=== PATIENT | male | born 1975 | race Two or more races ===

== ENCOUNTER 2018-11-10 00:01 | Inpatient (IN) | payer OTHER ==
[~2018-11-10] VITALS: Ht 180.3 cm; Wt 65.3 kg
[2018-11-10 04:30] VITALS: BP 129/76
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
[2018-11-10] MEDS ORDERED: MAG HYDROX/AL HYDROX/SIMETH 30 ML UDC PO PRN (05:30)
[2018-11-10] MEDS ORDERED: ONDANSETRON HCL/PF 4 MG/2 ML VIAL IVP PRN (05:30)
[2018-11-10] MEDS ORDERED: MAGNESIUM HYDROXIDE 30 ML UDC PO PRN (05:30)
[2018-11-10] MEDS ORDERED: Z GUARD REMEDY 2 OZ OINT TP PRN (05:30)
[2018-11-10] MEDS ORDERED: HYDROCODONE/APAP 5/325MG 1 EACH TABLET PO PRN (05:30)
[2018-11-10] MEDS ORDERED: ACETAMINOPHEN 325 MG TABLET PO PRN (05:30)
[2018-11-10] MEDS ORDERED: ZOLPIDEM TARTRATE 5 MG TABLET PO PRN (05:30)
[2018-11-10] MEDS: IV NS 0.9% 1,000 ML IV SCH ×3 (06:37→21:34)
--- NOTE | 2018-11-10 06:59 | NUR ---
BRANCH LENDING OFFICER NOTES ALL NEEDS ATTENDED AND MET, PATIENT RESTING COMFORTABLY AT THIS TIME, SAFETY MEASURES IN PLACE, WILL ENDORSE TO AM NURSE FOR CONTINUITY OF CARE.
[2018-11-10 07:00] LABS: APPEARANCE,URINE CLEAR (CLEAR); BILIRUBIN,URINE NEGATIVE (NEGATIVE); BLOOD, URINE 1+ Ery/uL (NEGATIVE); COLOR,URINE YELLOW (YELLOW); KETONES,URINE NEGATIVE (NEGATIVE); LEUKOCYTE ESTERASE ,URINE NEGATIVE (NEGATIVE); NITRITE, URINE NEGATIVE (NEGATIVE); PROTEIN,URINE NEGATIVE (NEGATIVE); UGLUCOSE NEGATIVE (NEGATIVE); UROBILINOGEN,URINE 0.2 EU/dL (0.2)
[2018-11-10] MEDS ORDERED: CEFTRIAXONE 1 G in IV D5W 50 ML IV SCH ×2 (07:00→19:00)
[2018-11-10 07:13] LABS: BACTERIA,URINE Rare /HPF (None Seen); SQUAMOUS EPITHELIAL CELL,UR Rare /HPF (None Seen); WBC,URINE 0-2 /HPF (0-3)
[2018-11-10 07:31] LABS: CALCIUM, SERUM 8.4 mg/dL (8.5-10.1); CREATININE 0.8 mg/dL (0.6-1.3); POTASSIUM 3.5 mmol/L (3.5-5.1)
[2018-11-10 07:32] LABS: MAGNESIUM 1.8 mg/dL (1.8-2.4); PHOSPHORUS 2.8 mg/dL (2.5-4.9)
[2018-11-10 07:35] LABS: BASOPHILS # (AUTO) 0.1 /CMM (0.0-0.2); BASOPHILS % (AUTO) 0.4 % (0.0-2.0); EOSINOPHILS % (AUTO) 0.1 % (0.0-6.0); HEMATOCRIT 41 % (39-51); LYMPHOCYTES # (AUTO) 1.6 /CMM (0.8-4.8); LYMPHOCYTES % (AUTO) 11.3 % (20.0-44.0); MEAN CORPUSCULAR HGB CONC 34 g/dl (31.0-36.0); MEAN CORPUSCULAR VOLUME 89 fL (80-96); NEUTROPHILS # (AUTO) 11.7 /CMM (1.8-8.9); NEUTROPHILS % (AUTO) 81.2 % (43.0-81.0); PLATELET COUNT (AUTO) 254 /CMM (150-450); RED BLOOD CELL COUNT(AUTO) 4.66 MIL/uL (4.5-6.0); WHITE BLOOD COUNT (AUTO) 14.4 K/uL (4.3-11.0)
[2018-11-10 08:00] VITALS: BP 115/70
--- NOTE | 2018-11-10 08:00 | NUR ---
rn notes received patient in the bed sleeping, patient has no acute respiratory distress, [id number], v/s stable. arouse when called name or touched. patient refused pain . Infusing ns at 125 ml/hr on right ac area intact, patient ambulatory using bathroom. call light within to reach, safety precaution maintained all the time.
--- NOTE | 2018-11-10 11:00 | NUR ---
rn notes seen patient by dr garcia, d/c tele to med/surge. patient resting hardik of the , continued monitoring.
--- NOTE | 2018-11-10 13:00 | NUR ---
rn notes restarted new iv line on left FA gauge 20. patient taken to smoke by supervision of tree driller.
--- NOTE | 2018-11-10 13:30 | NUR ---
rn notes CONTINUED INFUSING NS AT 125 ML/HR ON LEFT FA INTACT. PATIENT COOPERATIVE, REFUSED PAIN.
[2018-11-10 16:00] VITALS: BP 118/70
--- NOTE | 2018-11-10 18:30 | NUR ---
RN NOTES PATIENT EATING DINNER, INFUSING ROCEPHIN 100 ML/HR INTACT ON LEFT FA, REFUSED PAIN, V/S STABLE. ENDORSED ONCOMING NURSE FOLLOW PLAN OF CARE.
[2018-11-10 19:03] VITALS: BP 115/70
--- NOTE | 2018-11-10 19:23 | NUR ---
MS RN OPENING NOTES: RECEIVED PT ON ROOM AIR AND IS TOLERATING WELL. NO SOB NOTED. NO S/S OF DISTRESS. PT REQUESTING TO GO FOR A SMOKE. EDUCATED HIM THAT SMOKING IS PROHIBITED AND NOT GOOD FOR HIM. PT HAS SIGNED THE SMOKER FORM. PT HAS IV ON L FOREARM #20G AND IS BEING INFUSED WITH IV NS AT 125ML/HR. BED KEPT IN LOW, LOCKED POSITION, AND SIDE RAILS X 2UP. WILL CONTINUE TO MONITOR PT.
[2018-11-10 20:00] VITALS: BP 121/78
--- NOTE | 2018-11-10 20:06 | NUR ---
MS RN NOTES: PT WENT DOWN FOR SMOKE BREAK WITH NAYANA MALDONADO.
--- NOTE | 2018-11-10 20:24 | NUR ---
MS RN NOTES: PT BACK FROM SMOKE BREAK IN STABLE CONDITION.
[2018-11-11] MEDS: IV NS 0.9% 1,000 ML IV SCH (05:48)
--- NOTE | 2018-11-11 06:19 | NUR ---
MS RN CLOSING NOTES: ALL NEEDS WERE ATTENDED AND ANTICIPATED FOR. PT KEPT CLEAN, DRY, AND COMFORTABLE. PT ASLEEP AT THIS TIME AND RESTING COMFORTABLY. NO SOB NOTED. NO S/S OF DISTRESS. PT HAS IV ON L FOREARM #20G AND IS BEING INFUSED WITH IV NS AT 125ML/HR. PT ALSO HAS IV ON RAC #20G AND IS PATENT AND INTACT. CURRENTLY H/L. BED KEPT IN LOW, LOCKED POSITION, AND SIDE RAILS X1 UP. PT VERBALIZED THAT HE DOES NOT WANT OTHER SIDE RAIL UP AND HE UNDERSTANDS RISKS. WILL ENDORSE TO AM NURSE FOR PRERY.
[2018-11-11 08:00] VITALS: BP 116/69
--- NOTE | 2018-11-11 08:00 | NUR ---
RN NOTES RECEIVED PATIENT IN THE ROOM A/O X4, PATIENT STABLE, REFUSED PAIN AND WEAKNESS, PER PATIENT VERBALIZED FEELING BETTER TODAY. INFUSING NS AT LEFT FA 125 ML/HR INTACT, PATIENT EATING BREAKFAST, V/S STABLE. PATIENT AMBULATORY SELF CARE. CALL LIGHT WITHIN TO REACH, CONTINUED MONITORING. PATIENT FOCUSED AT THIS TIME GO OUT FOR SMOKING.
[2018-11-11] MEDS ORDERED: IV NS 0.9% 1,000 ML IV PRN (09:00)
--- NOTE | 2018-11-11 10:00 | NUR ---
RN NOTES PER HOSPITALIST ORDER [facility]
--- NOTE | 2018-11-11 10:32 | NUR ---
Social service consult requested by Dr. Lr for homelessness. Pt. is a 43 year old male who was admitted to [facility] for UTI and sepsis. SW met with pt. bedside. Pt. is alert and oriented x 4. Pt. is cooperative and cordial with SW during the assessment. Pt. states he is currently living at his dad's place in [place], located at [address] [facility] [facility] [address] until his he receives his permanent housing. Pt's emergency contact is his father Wilman . Pt. will be going back to [place] upon discharge. Pt. currently receives GR and Food stamps. Pt. drinks alcohol and uses methamphetamines occasionally. Pt. last used methamphetamines three to four days ago. Pt. attend drug treatment program 4 years ago at [facility]. Pt. denies any suicidal and homicidal ideations. Pt. does not have any psychiatric diagnosis. [facility] offered pt. referrals to treatment programs, however pt. declined. Pt. will require a TAP card upon discharge. [facility] updated spring encaser Catie regarding pt's discharge plan.
[2018-11-11 10:37] LABS: BASOPHILS % (AUTO) 0.5 % (0.0-2.0); EOSINOPHILS % (AUTO) 1.6 % (0.0-6.0); HEMATOCRIT 43 % (39-51); HEMOGLOBIN 14.4 g/dL (13.5-17.5); LYMPHOCYTES # (AUTO) 1.4 /CMM (0.8-4.8); LYMPHOCYTES % (AUTO) 18.7 % (20.0-44.0); MEAN CORPUSCULAR HGB CONC 34 g/dl (31.0-36.0); MEAN CORPUSCULAR VOLUME 90 fL (80-96); NEUTROPHILS # (AUTO) 4.8 /CMM (1.8-8.9); NEUTROPHILS % (AUTO) 65.2 % (43.0-81.0); PLATELET COUNT (AUTO) 242 /CMM (150-450); RED BLOOD CELL COUNT(AUTO) 4.74 MIL/uL (4.5-6.0); WHITE BLOOD COUNT (AUTO) 7.4 K/uL (4.3-11.0)
[2018-11-11 16:00] VITALS: BP 125/82
--- NOTE | 2018-11-11 16:30 | NUR ---
RN NOTES RECEIVED UA RESULT FROM [facility] UA CULTURE NORMAL SKIN JOSE RAMON, ASYMPTOMATIC BACTERIURIA IS NOT AN INDICATION FOR ANTIMICROBIAL TREATMENT.
--- NOTE | 2018-11-11 17:25 | NUR ---
OIL SCOUT NOTES PATIENT DISCHARGE AT THIS TIME GOING HOME SELF CARE. PATIENT A/O X4, STABLE , V/S WNL. REFUSED PAIN, AMBULATORY SELF CARE. MD RECONCILIATION AND DISCHARGE ORDER REVIEWED AND EXPLAINED TO PATIENT. PATIENT VERBALIZED UNDERSTANDING. PATIENT WILL FOLLOW PRIMARY SUPERVISOR CAPACITOR PROCESSING. PATIENT SIGN PAPERWORK, BELONGING WITH THE PATIENT, ALSO GIVEN BUS TOKEN. ESCORTED PATENT TO THE LOBBY FOR SAFETY.
== END 2018-11-11 17:15 | disposition home or self-care (01) | DRG 720 ==
LOC: TELE 04:22 → MED 08:37
PROVIDERS: ADMIT Internal Medicine; ATTEND Student in an Organized Health Care Education/Training Program
DX: A41.9 Sepsis, unspecified organism (principal); E86.0 Dehydration; N39.0 Urinary tract infection, site not specified; F19.11 Other psychoactive substance abuse, in remission
CPT/HCPCS: 36415; 80048-TC; 80061-TC; 81000-TC; 83605-TC; 83735-TC; 84100-TC; 85025-TC; 87081-TC; G0378; J0696; J7030; J7060

== ENCOUNTER 2021-07-04 | Inpatient (IN) | payer OTHER ==
[~2021-07-04] VITALS: Ht 175.3 cm; Wt 70.3 kg
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
--- NOTE | 2021-07-04 00:45 | NUR ---
IV LINE ESTABLISHED, LAC 18G. BLOOD COLLECTED AND SENT TO LAB
[2021-07-04] MEDS ORDERED: CLINDAMYCIN PHOSPHATE IV 600 MG/4 ML VIAL ONE (00:51)
[2021-07-04] MEDS ORDERED: KETOROLAC TROMETHAMINE 15 MG/ML VIAL ONE (00:51)
[2021-07-04] MEDS ORDERED: IV NS 0.9% 1,000 ML IV ONE (01:00)
[2021-07-04] MEDS ORDERED: KETOROLAC TROMETHAMINE INJ 30 MG/ML VIAL IV ONE (01:00)
[2021-07-04] MEDS ORDERED: CLINDAMYCIN 600 MG in IV D5W 100 ML IV ONE (01:00)
[2021-07-04 01:10] LABS: BASOPHILS % (AUTO) 0.1 % (0.0-2.0); EOSINOPHILS % (AUTO) 0.1 % (0.0-6.0); HEMATOCRIT 37 % (39-51); HEMOGLOBIN 12.1 g/dL (13.5-17.5); LYMPHOCYTES # (AUTO) 2.3 K/uL (0.8-4.8); LYMPHOCYTES % (AUTO) 8.1 % (20.0-44.0); MEAN CORPUSCULAR HGB CONC 33 g/dl (31.0-36.0); MEAN CORPUSCULAR VOLUME 86 fL (80-96); MONOCYTES # (AUTO) 1.6 K/uL (0.1-1.30); MONOCYTES % (AUTO) 5.6 % (2.0-12.0); NEUTROPHILS # (AUTO) 23.9 K/uL (1.8-8.9); NEUTROPHILS % (AUTO) 86.1 % (43.0-81.0); PLATELET COUNT (AUTO) 492 K/uL (150-450); RED BLOOD CELL COUNT(AUTO) 4.25 MIL/uL (4.5-6.0); WHITE BLOOD COUNT (AUTO) 27.7 K/uL (4.3-11.0)
[2021-07-04 01:25] LABS: CALCIUM, SERUM 8.9 mg/dL (8.5-10.1); CREATININE 1.1 mg/dL (0.6-1.3); POTASSIUM 3.9 mmol/L (3.5-5.1)
--- NOTE | 2021-07-04 01:54 | NUR ---
COVID ANTIGEN SWAB COLLECTED
[2021-07-04] MEDS ORDERED: ACETAMINOPHEN 325 MG TABLET PO PRN (03:30)
[2021-07-04] MEDS ORDERED: hydrALAZINE HCL IV 20 MG VIAL IV PRN (03:30)
[2021-07-04] MEDS ORDERED: IV NS 0.9% 1,000 ML IV SCH (03:30)
[2021-07-04] MEDS ORDERED: ONDANSETRON HCL/PF 4 MG/2 ML VIAL IVP PRN (03:30)
--- NOTE | 2021-07-04 04:10 | NUR ---
MRSA SWAB COLLECTED AND SENT TO LAB. PATIENT'S BELONGINGS LIST DONE.
[2021-07-04] MEDS ORDERED: VANCOMYCIN HCL 1.25 GM in IV D5W 260 ML IV SCH (08:00)
--- NOTE | 2021-07-04 08:32 | NUR ---
BED ASSIGNED 321-2
[2021-07-04] MEDS: HEPARIN SODIUM, PORCINE 5000 UNITS/1 ML VIAL SQ SCH ×3 (09:00→20:45)
--- NOTE | 2021-07-04 09:31 | NUR ---
REPORT GIVEN HUGO RUIZ FOR PERRY
--- NOTE | 2021-07-04 10:02 | NUR ---
JOSEPH MS NOTES PT IN BED, AWAKE, ALERT AND ORIENTED, NO COMPLAINT OF PAIN OR ANY DISCOMFORT, RESPIRATIONS REGULAR, ON O2 AT 2LPM VIA N/C, DISCHARGE ORDER GIVEN BY DR. WARD, DISCHARGE AND MEDICATION INSTRUCTIONS PROVIDED TO PT AND CAREGIVER, VERBALIZED UNDERSTANDING, BELONGINGS ACCOUNTED FOR, ASSISTED BY CAREGIVER TO WHEELCHAIR, LEFT IN STABLE CONDITION. Addendum: 07/04/21 at 1037 by JORGITO RAMOS RN PLS DISREGARD ABOVE NOTE, THIS IS FOR ANOTHER PATIENT.
--- NOTE | 2021-07-04 10:10 | NUR ---
RN MS NOTES RECEIVED PT FROM E.R. STAFF VIA [facility], ASSISTED TO BED, MADE COMFORTABLE, PT IS AWAKE, ALERT AND ORIENTED, NOT IN DISTRESS, ABLE TO AMBULATE TO THE BATHROOM WITH STEADY GAIT, NOTED WITH WOUND AT RIGHT LOWER LEG, KEPT CLEAN AND DRY, DRESSING APPLIED, ADMITTING ORDERS RECEIVED FROM MD, NOTED AND CARRIED OUT, VITALS TAKEN AND RECORDED.
[2021-07-04 12:00] VITALS: BP 128/49
[2021-07-04] MEDS: CEFEPIME 2 GM in IV D5W 100 ML IV SCH ×2 (12:21→20:40)
[2021-07-04] MEDS: MORPHINE SULFATE INJ 2 MG/ML DISP.SYRIN IV PRN ×2 (15:07→20:08)
[2021-07-04 16:00] VITALS: BP 110/64
[2021-07-04] MEDS: VANCOMYCIN 0.75 GM in IV D5W 250 ML IV SCH (18:10)
--- NOTE | 2021-07-04 18:15 | NUR ---
RN MS NOTES PT IN BED, AWAKE, ALERT AND ORIENTED, WATCHING TV, NO COMPLAINT OF PAIN AT THIS TIME, RESPIRATIONS NORMAL, DRESSING TO RIGHT KNEE INTACT, NO DRAIN NOTED, IV ATB GIVEN ORDERED, ATE DINNER WITH GOOD APPETITE, CALL LIGHT WITHIN REACH, ALL NEEDS ATTENDED.
--- NOTE | 2021-07-04 19:15 | NUR ---
RN opening notes Received Pt from morning nurse. Pt is sitting in the bed comfortably watching TV. Pt is alert and orientedX4. On room air. No SOB. No S/s of distress noted. IV sites at LAC# 18 is clean, intact and infuising well vanco abx. Snack is given. Safety precautions is maintained. Bed at low position, brakes locked, side rails upX2, hob elevated, urinal at the bedside and call light is within reach. Will continue to monitor.
[2021-07-04 20:00] VITALS: BP 115/64
--- NOTE | 2021-07-04 20:08 | NUR ---
RN notes Pt is complaining of pain on R and L knee 10/10 on pain scale. Administered morphine 2 mg/iv push/prn as ordered. VS is stable. safety precautions is maintained. Will continue to monitor.
--- NOTE | 2021-07-04 20:46 | NUR ---
RN notes Pt refused heparin inj. Explained and risks and benefits. Pt keep refusing. Pt stated "No" I don't want that." Will continue to monitor.
--- NOTE | 2021-07-04 23:28 | NUR ---
RN notes Pt refuses IV fluids. Pt stated "I pee a lot." Explained risks and benefits. Pt keep refusing. Pt also states " I drink a lot too." Will continue to monitor.
[2021-07-05] MEDS: MORPHINE SULFATE INJ 2 MG/ML DISP.SYRIN IV PRN ×2 (00:28→05:21)
[2021-07-05] MEDS: VANCOMYCIN 0.75 GM in IV D5W 250 ML IV SCH (02:11)
--- NOTE | 2021-07-05 02:58 | NUR ---
RN notes Pt keep refusing abx vanco. explained risks and benefits. Offered several times. Pt keep refusing. Pt stated "I keep peeing and peeing!!" Pt agitated easily and non compliant. Pt removed wound dressing and keep refusing for wound care dressing change. Charge nurse is aware and informed.
--- NOTE | 2021-07-05 05:30 | NUR ---
RN notes wound care provided.
--- NOTE | 2021-07-05 06:20 | NUR ---
RN notes Pt refused am labs. Explained risks and benefits. Informed to Phelebotomist to come again.
--- NOTE | 2021-07-05 06:40 | NUR ---
RN closing notes Pt is resting in bed comfortably. Pt is alert and orientedX4. On room air. No SOB. No S/s of distress noted. IV sites at LAC# 18 is clean, intact and SL. Pt still refusing IV fluids. Wound care provided. Kept Pt clean, dry and comfortable. Safety precautions is maintained. Bed at low position, brakes locked, side rails upX2, hob elevated, urinal at the bedside and call light is within reach. Will endorse to am nurse for PERRY.
--- NOTE | 2021-07-05 06:55 | NUR ---
RN notes Pt is requesting to smoke outside. Pt signed the consent for smoking. Pt went to smoke outside accompanied by ERICA Norris. Charge nurse is aware and informed.
--- NOTE | 2021-07-05 07:30 | NUR ---
RN MS NOTES PT AWAKE, ALERT AND ORIENTED, WALKING ALONG THE HALLWAY WITH STEADY GAIT WITH DRESSING TO RIGHT LOWER LEG PARTLY DANGLING, OFFERED TO REINFORCE THE DRESSING BUT PT REFUSED, SAYING HE IS OK AND HE WANTS TO SMOKE, AND REQUESTING FOR PAIN MEDICINE, CLOTH SPREADER NURSE GAVE HIM PAIN MED AND IT IS NOT DUE YET, NOT IN DISTRESS.
--- NOTE | 2021-07-05 08:30 | NUR ---
RN MS NOTES PT STATED THAT HE WANTS TO SMOKE, REMINDED PT THAT HE HAS TO HAVE SOMEBODY WITH HIM AT THE SMOKING AREA, PT SAID HE DOESN'T CARE AND WENT STRAIGHT TO THE ELEVATOR RIGHT AWAY, ACCOMPANIED PT TO SMOKE AT THE SMOKING AREA AND WENT BACK TO HIS ROOM AFTER 5 MIN.
--- NOTE | 2021-07-05 08:50 | NUR ---
RN MS NOTES CHARGE NURSE, NURSING FLOOR WORKER TRANSFER BAY AND DR. MASON INFORMED THAT PT LEFT AMA.
--- NOTE | 2021-07-05 08:50 | NUR ---
RN MS NOTES PT REFUSING ALL AM MEDS AND LAB DRAWS, EXPLAINED RISKS AND BENEFITS, PLAN OF CARE, BUT STILL REFUSED EVERYTHING, ASKING FOR PAIN MEDICATION AND DEMANDING TO SPEAK WITH THE DOCTOR, WHILE STILL REFUSING FOR DRESSING TO BE APPLIED AT THE RIGHT LOWER LEG, PT STARTED TO COLLECT HIS BELONGINGS AND SAID THAT HE IS LEAVING AND GOING TO ANOTHER HOSPITAL, EXPLAINED THE RISKS OF LEAVING AMA, INCLUDING WORSENING OF HIS LEG WOUND AND OTHER POSSIBLE COMPLICATIONS AND CONVINCED PT TO STAY TO CONTINUE TREATMENT BUT SAID HE IS DECIDED ON LEAVING, PT SIGNED AMA FORM AND AGREED TO HAVE HIS WOUND DRESSED, NEW CLEAN DRESSING APPLIED TO RIGHT LOWER LEG WOUND, EXPLAINED TO PT THAT HE SHOULD GO TO AN EMERGENCY ROOM FOR CONTINUITY OF HIS TREATMENT AND TO FOLLOW UP WITH HIS PRIMARY CARE DOCTOR, PT VERBALIZED UNDERSTANDING, REFUSED TO SIGN HIS BELONGINGS FORM AND STATED THAT HE WOULD LIKE TO LEAVE IMMEDIATELY, ACCOMPANIED PT TO HOSPITAL LOBBY, LEFT IN STABLE CONDITION WITH HIS BELONGINGS.
--- NOTE | 2021-07-05 09:21 | NUR ---
WOUND CARE CONSULT: ATTEMPTED TO SEE PT FOR SKIN ASSESSMENT AT 0820 BUT PT REFUSED TO HAVE DRESSING REMOVED. EXPLAINED IMPORTANCE OF WOUND CARE BUT PT REFUSED. DPM CONSULT CALLED TO DR ANDRES BUT PT WENT HOME AGAINST MEDICAL ADVICE SHORTLY AFTERWARD.
== END 2021-07-05 09:00 | disposition left against medical advice (07) | DRG 383 ==
LOC: ER 00:05 → TRANSITION 05:42 → MED 09:08
PROVIDERS: ADMIT Internal Medicine; ATTEND Internal Medicine
DX: L03.115 Cellulitis of right lower limb (principal); S81.001A Unspecified open wound, right knee, initial encounter; D72.829 Elevated white blood cell count, unspecified; Z20.822 Contact with and (suspected) exposure to COVID-19; V19.3XXA Pedal cyclist (driver) (passenger) injured in unspecified nontraffic accident, initial encounter; Y92.89 Other specified places as the place of occurrence of the external cause; Y93.55 Activity, bike riding
CPT/HCPCS: 36415; 73590-TC; 80048-TC; 83605-TC; 85025-TC; 85652-TC; 86140-TC; 87040-TC; 87081-TC; A4217; A6253; A6403; C9803; G0378; J0360; J0692; J1644; J1885; J2270; J2405; J3370; J3490; J7030; J7060